=== PATIENT | female | born 1965 | race Caucasian/White ===

== ENCOUNTER → 2017-04-04 | Outpatient (CLI) | payer MEDICARE, MEDICAID ==
[~2017-04-04] MED LIST: HYDR25CA PO; HYDR50CA PO; LAMO2TB. PO; MULT-208 PO; PRAZ1CAP2 PO; ZIPR20CA2 PO
== END | disposition home or self-care (01) ==
LOC: CFH 13:42
PROVIDERS: ATTEND Nurse Practitioner
DX: N60.01 Solitary cyst of right breast (principal); N60.02 Solitary cyst of left breast
CPT/HCPCS: G0204

== ENCOUNTER 2017-09-07 13:32 | Emergency (ER) | payer MEDICARE, MEDICAID ==
[~2017-09-07] VITALS: Ht 167.6 cm; Wt 91.4 kg
[2017-09-07] MEDS ORDERED: LIDOCAINE 1%, 20ML INFIL ONE (14:00)
[2017-09-07] MEDS ORDERED: SODIUM CHLORIDE FLUSH 10ML SYR IVF ONE (14:00)
[2017-09-07] MEDS ORDERED: SODIUM CHLORIDE 0.9% 1,000ML IVBOLUS ONE (14:00)
[2017-09-07] MEDS ORDERED: LIDOCAINE 1%, 20ML ONE (14:54)
[2017-09-07 15:41] LABS: BLOOD UREA NITROGEN 4 mg/dL (7-18)
[2017-09-07 15:44] LABS: HEMATOCRIT 45.1 % (34.6-47.8); HEMOGLOBIN 15.4 g/dL (11.7-16.4)
[2017-09-07 16:26] VITALS: BP 146/77
== END 2017-09-07 16:28 | disposition home or self-care (01) ==
LOC: ED 16:10
DX: S01.122A Laceration with foreign body of left eyelid and periocular area, initial encounter (principal); F10.129 Alcohol abuse with intoxication, unspecified; F31.9 Bipolar disorder, unspecified; W01.190A Fall on same level from slipping, tripping and stumbling with subsequent striking against furniture, initial encounter; Y93.89 Activity, other specified; Y92.098 Other place in other non-institutional residence as the place of occurrence of the external cause; Y99.8 Other external cause status
CPT/HCPCS: 12052; 36415; 70450; 71010; 80048; 82040; 85025; 93005; 99284; 99285

== ENCOUNTER 2017-11-14 14:51 | Emergency (ER) | payer MEDICARE, MEDICAID ==
[~2017-11-14] VITALS: Ht 167.6 cm; Wt 86.5 kg
[~2017-11-14 14:51] MED LIST changes: +BUPR-173 PO
[2017-11-14 14:55] VITALS: BP 133/78
[2017-11-14] MEDS ORDERED: L.E.T SOLUTION TP ONE (15:30)
[2017-11-14] MEDS ORDERED: LIDOCAINE-MPF 1%, 5ML INFIL ONE (15:30)
[2017-11-14] MEDS ORDERED: LIDOCAINE 1%, 20ML ONE (15:38)
== END 2017-11-14 16:35 | disposition home or self-care (01) ==
LOC: ED 16:29
DX: S01.81XA Laceration without foreign body of other part of head, initial encounter (principal); F43.10 Post-traumatic stress disorder, unspecified; W01.0XXA Fall on same level from slipping, tripping and stumbling without subsequent striking against object, initial encounter; Y93.89 Activity, other specified; Y92.410 Unspecified street and highway as the place of occurrence of the external cause; Y99.9 Unspecified external cause status
CPT/HCPCS: 12011; 82962; 99283

== ENCOUNTER → 2018-05-07 | Outpatient (CLI) | payer MEDICARE, MEDICAID ==
[~2018-05-07] MED LIST changes: +BUPR150T6 PO; +CHOL10003 PO; +CYAN10002 IM; +HYDR25CA94 PO; +LAMO25TB7 PO; +PRAZ2CAP2 PO; +ZIPR60CA2 PO
== END | disposition home or self-care (01) ==
LOC: CFH 14:57
PROVIDERS: ATTEND Nurse Practitioner
DX: Z12.31 Encounter for screening mammogram for malignant neoplasm of breast (principal)
CPT/HCPCS: 77067

== ENCOUNTER 2018-10-22 12:12 | Emergency (ER) | payer MEDICARE, MEDICAID ==
[~2018-10-22] VITALS: Ht 165.1 cm; Wt 75.0 kg
[2018-10-22 12:22] VITALS: BP 146/99
[2018-10-22] MEDS ORDERED: LORazepam 1MG TABLET ONE (13:25)
--- NOTE | 2018-10-22 13:29 | NUR ---
Patient/Caregiver given discharge instructions and they have confirmed that they understand the instructions. Patient ambulatory with steady gait. Addendum: 10/22/18 at 1329 by ASIF PATIENT TO HAVE FAMILY/FRIEND DRIVE PATIENT HOME FOR SAFE DC.
[2018-10-22] MEDS ORDERED: LORazepam 1MG TABLET PO ONE (13:30)
== END 2018-10-22 13:30 | disposition home or self-care (01) ==
LOC: ED 13:20
DX: F41.1 Generalized anxiety disorder (principal); F32.9 Major depressive disorder, single episode, unspecified; F43.10 Post-traumatic stress disorder, unspecified; E66.9 Obesity, unspecified; Z68.27 Body mass index [BMI] 27.0-27.9, adult
CPT/HCPCS: 99284

== ENCOUNTER 2019-11-05 11:12 | Emergency (ER) | payer MEDICAID, MEDICARE ==
[~2019-11-05] VITALS: Ht 167.6 cm; Wt 80.5 kg
[2019-11-05 11:26] VITALS: BP 102/60
--- NOTE | 2019-11-05 11:31 | NUR ---
BREAK RN: PT UPRIGHT ON GURNEY AWAKE & CALM, RESPONDS APPROP TO STAFF, NAD AT REST BUR C/O SHOULDER PAIN WITH MOVEMENT, COMFORT MEASURES PROVIDED, CALL LIGHT WITHIN REACH, PT TO XR.
[2019-11-05 12:21] LABS: BASOPHILS # (AUTO) 0.04 x10^3/uL (0-0.1); BASOPHILS % (AUTO) 0 % (0-1); EOSINOPHILS # (AUTO) 0.23 x10^3/uL (0-0.4); EOSINOPHILS % (AUTO) 2 % (1-7); LYMPHOCYTES # (AUTO) 2.59 x10^3/uL (1-3.4); LYMPHOCYTES % (AUTO) 21 % (22-44); MD NO; MEAN CORPUSCULAR HEMOGLOBIN 32.5 pg (27.0-34.8); MEAN CORPUSCULAR HGB CONC 33.3 g/dL (32.4-35.8); MEAN CORPUSCULAR VOLUME 97.5 fL (80-100); MEAN PLATELET VOLUME 6.6 fL (7.4-10.4); MONOCYTES # (AUTO) 0.76 x10^3/uL (0.2-0.8); MONOCYTES % (AUTO) 6 % (2-9); NEUTROPHILS # (AUTO) 8.83 x10^3/uL (1.8-6.8); NEUTROPHILS % (AUTO) 71 % (42-75); PLATELET COUNT 317 x10^3/uL (130-400); RED BLOOD COUNT 4.53 x10^6/uL (3.82-5.3); RED CELL DISTRIBUTION WIDTH 13.7 % (9.6-15.2)
[2019-11-05 12:32] LABS: ALANINE AMINOTRANSFERASE 18 U/L (12-78); ALBUMIN 3.8 g/dL (3.4-5.0); ANION GAP 7 mmol/L (5-15); CALCIUM 8.8 mg/dL (8.5-10.1); CHLORIDE 107 mmol/L (98-107); CREATININE 0.91 mg/dL (0.55-1.02)
[2019-11-05 12:37] LABS: ALKALINE PHOSPHATASE 67 U/L (45-117); BILIRUBIN,TOTAL 0.2 mg/dL (0.2-1.0); TOTAL PROTEIN 7.6 g/dL (6.4-8.2); TROPONIN I < 0.015 ng/mL (0.000-0.045)
[2019-11-05] MEDS ORDERED: IBUPROFEN 600 MG TABLET ONE (13:56)
[2019-11-05] MEDS ORDERED: IBUPROFEN 600 MG TABLET PO ONE (14:00)
--- NOTE | 2019-11-05 14:26 | NUR ---
Patient given discharge instructions and they have confirmed that they understand the instructions. Patient ambulatory with steady gait.
== END 2019-11-05 14:27 | disposition home or self-care (01) ==
LOC: ED 13:11
DX: R07.89 Other chest pain (principal); M25.512 Pain in left shoulder; Z87.891 Personal history of nicotine dependence
CPT/HCPCS: 36415; 71045; 80053; 83690; 84484; 85025; 85379; 93005; 99284

== ENCOUNTER 2019-12-17 18:48 | Emergency (ER) | payer MEDICAID, MEDICARE ==
[~2019-12-17] VITALS: Ht 167.6 cm; Wt 79.0 kg
[2019-12-17 19:04] VITALS: BP 117/65
--- NOTE | 2019-12-17 19:10 | NUR ---
felicity soni, pt states she fell down earlier and asked her neighbor to call nae. states she does not know how long she was nel the ground. pt states 3-4 falls in the past 3 weeks. "i dont know" is her response so "why are you falling down so much?" pain in bilat arms and bilat legs. denies head trauma. attached to all moniotors
[2019-12-17 19:47] LABS: MICROSCOPIC INDICATED
[2019-12-17 19:48] LABS: CULTURE INDICATED? YES
[2019-12-17 20:22] LABS: MEAN CORPUSCULAR HEMOGLOBIN 31.3 pg (27.0-34.8); MEAN CORPUSCULAR HGB CONC 32.5 g/dL (32.4-35.8); MEAN CORPUSCULAR VOLUME 96.3 fL (80-100); MEAN PLATELET VOLUME 6.3 fL (7.4-10.4); PLATELET COUNT 294 x10^3/uL (130-400); RED BLOOD COUNT 3.98 x10^6/uL (3.82-5.3); RED CELL DISTRIBUTION WIDTH 13.2 % (9.6-15.2)
[2019-12-17 20:33] LABS: ALANINE AMINOTRANSFERASE 23 U/L (12-78); ALBUMIN 3.1 g/dL (3.4-5.0); ANION GAP 9 mmol/L (5-15); CALCIUM 9.1 mg/dL (8.5-10.1); CHLORIDE 105 mmol/L (98-107); CREATININE 1.08 mg/dL (0.55-1.02)
--- NOTE | 2019-12-17 20:33 | NUR ---
PT RESTING ON GURNEY WITH NO ACUTE DISTRESS. PT STATES THAT IF ALL OF HER LABS COME BACK NEG, SHE WANTS TO GO HOME
[2019-12-17 20:36] LABS: BASOPHILS # (AUTO) 0.03 x10^3/uL (0-0.1); BASOPHILS % (AUTO) 0 % (0-1); EOSINOPHILS # (AUTO) 0.09 x10^3/uL (0-0.4); EOSINOPHILS % (AUTO) 1 % (1-7); LYMPHOCYTES # (AUTO) 1.67 x10^3/uL (1-3.4); LYMPHOCYTES % (AUTO) 14 % (22-44); MD SCAN; MONOCYTES # (AUTO) 1.21 x10^3/uL (0.2-0.8); MONOCYTES % (AUTO) 10 % (2-9); NEUTROPHILS # (AUTO) 9.18 x10^3/uL (1.8-6.8); NEUTROPHILS % (AUTO) 75 % (42-75)
[2019-12-17 20:37] LABS: ALKALINE PHOSPHATASE 92 U/L (45-117); BILIRUBIN,TOTAL 0.3 mg/dL (0.2-1.0); TOTAL PROTEIN 7.4 g/dL (6.4-8.2); TROPONIN I < 0.015 ng/mL (0.000-0.045)
[2019-12-17] MEDS ORDERED: LIDOCAINE-MPF 1%, 2ML ONE (20:46)
[2019-12-17] MEDS ORDERED: CEFTRIAXONE 1,000 MG ONE (20:47)
[2019-12-17] MEDS ORDERED: CEFTRIAXONE 1,000 MG IM ONE (21:00)
--- NOTE | 2019-12-17 21:13 | NUR ---
PT MEDICATED FOR UTI AND FRIEND DAGOBERTO CALLED. HE SAID HE IS COMING FROM [facility] AND WILL BE HERE AROUND 2134 TO PICK HER UP. PT DRESSED AND PLACED IN WHEEL CHAIR IN LOBBY FOR FRIEND TO RECIEVE HER. PT PROVIDED WALKER TO TAKE HOME WITH HER
== END 2019-12-17 21:25 | disposition home or self-care (01) ==
LOC: ED 19:42
DX: N30.00 Acute cystitis without hematuria (principal); R53.1 Weakness
CPT/HCPCS: 36415; 70450; 80053; 81001; 83605; 84484; 85025; 87077; 87086; 87186; 93005; 96372; 99285; J0696

== ENCOUNTER 2020-01-19 10:55 | Inpatient (IN) | payer MEDICARE, MEDICAID ==
[~2020-01-19] VITALS: Ht 167.6 cm; Wt 75.8 kg
--- NOTE | 2020-01-19 11:13 | NUR ---
PT BIBA FOR GLF THAT OCCURRED LAST NIGHT, PT WAS UNABLE TO GET UP AND WAS DOWN ALL NIGHT. NEIGHBOR HEARD PT CALLING OUT FOR HELP AND ASSISTED PT OFF GROUND AND CALLED EMS. PT HAS HAD INCREASED GLF'S X 1 YEAR SECONDARY TO WEAKNESS. REPORT RECEIVED [facility]. PER EMS, PT HAD HOLTER MONITOR PLACED BUT TOOK IT OFF A FEW DAYS AGO. PT DENIES SYNCOPE. ABRASION NOTED TO LEFT ELBOW, PT DENIES OTHER INJURY. PT A&OX4, RESPS EVEN AND UNLABORED, SINUS TACH ON MONITOR WITH NO ECTOPY. NEURO INTACT. ALL MONITORS APPLIED. EKG TAKEN ON ARRIVAL. CALL LIGHT IN REACH. AWAITING LABS AND DISPO.
[2020-01-19 11:22] LABS: BASOPHILS # (AUTO) 0.03 x10^3/uL (0-0.1); BASOPHILS % (AUTO) 0 % (0-1); EOSINOPHILS # (AUTO) 0.06 x10^3/uL (0-0.4); EOSINOPHILS % (AUTO) 1 % (1-7); LYMPHOCYTES # (AUTO) 2.21 x10^3/uL (1-3.4); LYMPHOCYTES % (AUTO) 19 % (22-44); MD NO; MEAN CORPUSCULAR HEMOGLOBIN 31.6 pg (27.0-34.8); MEAN CORPUSCULAR HGB CONC 33.2 g/dL (32.4-35.8); MEAN CORPUSCULAR VOLUME 95.1 fL (80-100); MEAN PLATELET VOLUME 6.1 fL (7.4-10.4); MONOCYTES # (AUTO) 0.52 x10^3/uL (0.2-0.8); MONOCYTES % (AUTO) 4 % (2-9); NEUTROPHILS # (AUTO) 8.92 x10^3/uL (1.8-6.8); NEUTROPHILS % (AUTO) 76 % (42-75); PLATELET COUNT 361 x10^3/uL (130-400); RED BLOOD COUNT 4.66 x10^6/uL (3.82-5.3); RED CELL DISTRIBUTION WIDTH 14.4 % (9.6-15.2)
[2020-01-19 11:32] LABS: ALBUMIN 3.8 g/dL (3.4-5.0); ANION GAP 6 mmol/L (5-15); CALCIUM 10.2 mg/dL (8.5-10.1); CHLORIDE 105 mmol/L (98-107); CREATININE 0.98 mg/dL (0.55-1.02)
[2020-01-19] MEDS ORDERED: ONDANSETRON ODT 4 MG PO ONE (12:30)
--- NOTE | 2020-01-19 13:00 | NUR ---
late entry d/t patient care: pt vomited x 1, edmd notified. however, after emesis, pt denies nausea, declines zofran.
[2020-01-19 13:12] LABS: MICROSCOPIC NOT IND
[2020-01-19 13:15] LABS: CULTURE INDICATED? NO
--- NOTE | 2020-01-19 13:45 | NUR ---
pt trialed to ambulate with RN and MD. pt was unable to walk more than 3 steps without faltering and needing to grab onto wall. pt is oriented to person, place, year and situation, disoriented to year. KIMBER Valentine notified. neuro exam repeated, pt remains neurologically intact, generalized weak but no focal weakness. pt is confabulating, stating she needs to leave to sisal picker her children, stating she needs to leave to tend to cats, then stating she needs to leave to go to an appt. EDMD Valentine notified. pt assisted back to bed, pt a&ox3, resps even and unlabored. pt denies acute pain, c/o mild chronic joint pain at this time. all monitors in place. 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 pt to be admitted. pt agreeable.
--- NOTE | 2020-01-19 13:50 | NUR ---
breathalyzer performed per MD instruction, pt blew 0. EDMD notified.
[2020-01-19] MEDS ORDERED: THIAMINE 200 MG in SODIUM CHLORIDE 0.9% 50 ML IV ONE (14:00)
--- NOTE | 2020-01-19 14:12 | NUR ---
PT UNABLE TO RECALL HOME MEDS/DOSES ; THIS RN UNABLE TO COMPLETE MED REC AT THIS TIME.
--- NOTE | 2020-01-19 14:20 | NUR ---
TASK RN: IN ROOM FOR EVAL.
[2020-01-19 14:23] LABS: ALBUMIN 3.8 g/dL (3.4-5.0); BILIRUBIN, DIRECT 0.2 mg/dL (0.1-0.2)
[2020-01-19 14:25] LABS: BILIRUBIN,INDIRECT 0.4 mg/dL (0.0-2.0); BILIRUBIN,TOTAL 0.6 mg/dL (0.2-1.0); TOTAL PROTEIN 8.1 g/dL (6.4-8.2)
[2020-01-19] MEDS ORDERED: ONDANSETRON ODT 4 MG PO PRN (14:30)
[2020-01-19] MEDS ORDERED: LORazepam 1MG TABLET PO PRN (14:30)
[2020-01-19] MEDS ORDERED: ONDANSETRON 2MG/ML, 2ML IVPush PRN (14:30)
[2020-01-19] MEDS ORDERED: LAMO150T4 PO (14:32)
[2020-01-19] MEDS ORDERED: HYDR50TA99 PO (14:32)
[2020-01-19] MEDS ORDERED: DOXE75CA PO (14:32)
[2020-01-19] MEDS ORDERED: ZIPR80CA3 PO (14:32)
[2020-01-19] MEDS ORDERED: BENZ1TAB61 PO (14:32)
[2020-01-19] MEDS: SODIUM CHLORIDE 0.9% 1,000 ML IV SCH (14:38)
--- NOTE | 2020-01-19 14:38 | NUR ---
TASK RN: PIV STARTED. MEDICATED PER EMAR.
--- NOTE | 2020-01-19 14:42 | NUR ---
MED REC UPDATED BY CALLING PT'S PHARMACY. MD ROSALES NOTIFIED THAT MED REC NEEDS REVIEW
--- NOTE | 2020-01-19 14:45 | NUR ---
TASK RN: JAZ SHAFFER FROM PHARMACY.
--- NOTE | 2020-01-19 14:56 | NUR ---
REPORT GIVEN TO JODY COLINDRES WHO IS ASSUMING CARE AT THIS TIME.
--- NOTE | 2020-01-19 15:08 | NUR ---
REPORT RECEIVED FROM MARY VERA. PT IS RESTING ON nooked W/ CALL LIGHT IN REACH. AWAITING ADMIT.
[2020-01-19 15:14] LABS: AMPHETAMINE SCREEN, URINE Negative (Negative); BARBITURATE SCREEN, URINE Negative (Negative); BENZODIAZEPINE SCREEN, URINE Negative (Negative); CANNABINOID SCREEN, URINE Negative (Negative); COCAINE SCREEN, URINE Negative (Negative); METHADONE SCREEN, URINE Negative (Negative); OPIATE SCREEN, URINE Negative (Negative)
[2020-01-19] MEDS: POTASSIUM CHLORIDE 20 MEQ, MAGNESIUM SULFATE 1 GM, FOLIC ACID 1 MG, THIAMINE 200 MG, MV... IV SCH (15:25)
--- NOTE | 2020-01-19 15:35 | NUR ---
REPORT GIVEN TO ALVINA VERA. PT IS READY FOR TRANSFER AT THIS TIME.
[2020-01-19 15:56] VITALS: BP 130/84
[2020-01-19 19:08] VITALS: BP 119/77
[2020-01-19] MEDS ORDERED: DOXEPIN 25 MG CAPSULE PO SCH (21:00)
[2020-01-19] MEDS: HYDROXYZINE PAMOATE 50MG CAP PO PRN (21:29)
[2020-01-19] MEDS: BENZTROPINE 1 MG TABLET PO SCH (21:29)
[2020-01-19] MEDS: ZIPRASIDONE 40MG CAPSULE PO SCH (21:30)
[2020-01-19] MEDS: LAMOTRIGINE 100 MG TABLET PO SCH (21:30)
[2020-01-20 01:57] VITALS: BP 104/70
[2020-01-20 06:04] LABS: CHLORIDE 110 mmol/L (98-107)
[2020-01-20 06:10] LABS: ALANINE AMINOTRANSFERASE 21 U/L (12-78); ALBUMIN 3.3 g/dL (3.4-5.0); ALKALINE PHOSPHATASE 69 U/L (45-117); ANION GAP 6 mmol/L (5-15); BASOPHILS # (AUTO) 0.05 x10^3/uL (0-0.1); BASOPHILS % (AUTO) 1 % (0-1); BILIRUBIN,TOTAL 0.5 mg/dL (0.2-1.0); CALCIUM 8.7 mg/dL (8.5-10.1); CREATININE 0.87 mg/dL (0.55-1.02); EOSINOPHILS # (AUTO) 0.22 x10^3/uL (0-0.4); EOSINOPHILS % (AUTO) 2 % (1-7); LYMPHOCYTES # (AUTO) 3.33 x10^3/uL (1-3.4); LYMPHOCYTES % (AUTO) 33 % (22-44); MD NO; MEAN CORPUSCULAR HEMOGLOBIN 31.7 pg (27.0-34.8); MEAN CORPUSCULAR HGB CONC 32.6 g/dL (32.4-35.8); MEAN CORPUSCULAR VOLUME 97.2 fL (80-100); MEAN PLATELET VOLUME 6.3 fL (7.4-10.4); MONOCYTES % (AUTO) 6 % (2-9); NEUTROPHILS # (AUTO) 5.83 x10^3/uL (1.8-6.8); NEUTROPHILS % (AUTO) 58 % (42-75); PLATELET COUNT 336 x10^3/uL (130-400); RED CELL DISTRIBUTION WIDTH 14.4 % (9.6-15.2); TOTAL PROTEIN 6.8 g/dL (6.4-8.2)
[2020-01-20 06:12] VITALS: BP 97/70
[2020-01-20] MEDS ORDERED: ZIPRASIDONE 20MG CAPSULE ONE (07:14)
[2020-01-20] MEDS: HYDROXYZINE PAMOATE 50MG CAP PO PRN ×2 (07:16→15:25)
[2020-01-20] MEDS: ZIPRASIDONE 40MG CAPSULE PO SCH (07:16)
[2020-01-20] MEDS: BENZTROPINE 1 MG TABLET PO SCH (07:17)
[2020-01-20] MEDS: LAMOTRIGINE 100 MG TABLET PO SCH (07:17)
[2020-01-20] MEDS: SODIUM CHLORIDE 0.9% 1,000 ML IV SCH (07:18)
[2020-01-20] MEDS ORDERED: HEPARIN 5,000 UNITS/ML, 1ML SQ SCH (08:30)
[2020-01-20] MEDS ORDERED: CHOLECALCIFEROL 1,000 UNIT TABLET PO SCH (09:00)
[2020-01-20] MEDS ORDERED: GADOTERATE 7.5 MMOL/15 ML SYR ONE (11:06)
[2020-01-20 12:20] VITALS: BP 116/78
[2020-01-20] MEDS ORDERED: THIAMINE 100 MG in SODIUM CHLORIDE 0.9% 50 ML IV SCH (14:00)
[2020-01-20] MEDS: POTASSIUM CHLORIDE 20 MEQ, MAGNESIUM SULFATE 1 GM, FOLIC ACID 1 MG, THIAMINE 200 MG, MV... IV SCH (15:25)
== END 2020-01-20 17:50 | disposition left against medical advice (07) | DRG 552 ==
LOC: ED 11:43 → EDIP 13:51 → 4EST 15:45
PROVIDERS: ADMIT Internal Medicine; ATTEND Internal Medicine
PROC: 0T9B70Z Drainage of Bladder with Drainage Device, Via Natural or Artificial Opening (ICD-10-PCS; principal; 2020-01-19)
DX: M50.30 Other cervical disc degeneration, unspecified cervical region (principal); E51.2 Wernicke's encephalopathy; R29.6 Repeated falls; E86.0 Dehydration; Z53.29 Procedure and treatment not carried out because of patient's decision for other reasons; E83.52 Hypercalcemia; F31.9 Bipolar disorder, unspecified; F41.1 Generalized anxiety disorder; F43.10 Post-traumatic stress disorder, unspecified; Z82.49 Family history of ischemic heart disease and other diseases of the circulatory system; Z83.3 Family history of diabetes mellitus; Z87.891 Personal history of nicotine dependence; Z90.710 Acquired absence of both cervix and uterus; Z91.81 History of falling; Z96.611 Presence of right artificial shoulder joint
CPT/HCPCS: 36415; 70553; 71045; 72156; 80048; 80053; 80076; 80307; 81003; 82040; 82306; 82330; 82607; 83735; 84100; 84443; 85025; 93005; 96374; G0378; J1644; J3411; J3475; J3480; J7042; Q0162; A9575; J7030

== ENCOUNTER 2021-01-13 18:18 | Emergency (ER) | payer MEDICARE, MEDICAID ==
[~2021-01-13] VITALS: Ht 167.6 cm; Wt 78.8 kg
[~2021-01-13 18:18] MED LIST changes: +BENZ1TAB61 PO; +BUPR150T22 PO; -BUPR150T6 PO; +DOXE75CA PO; +HYDR50TA99 PO; +LAMO150T4 PO; +ZIPR80CA3 PO
[2021-01-13 18:21] VITALS: BP 108/75
--- NOTE | 2021-01-13 18:58 | NUR ---
PT TO ROOM 31 W/ C/O NEEDING REFILL FOR GEODON AND LAMICTAL. PT STATES UNABLE TO SLEEP. PT STATES SHE HAS NOT BEEN ON HER MEDICATIONS SINCE 12/31 SECONDAR TO INSUANCE CHANGE. PT RESTING ON INGA. CAROL.
== END 2021-01-13 19:59 | disposition home or self-care (01) ==
LOC: ED 19:57
DX: F41.1 Generalized anxiety disorder (principal); Z76.0 Encounter for issue of repeat prescription; G47.00 Insomnia, unspecified
CPT/HCPCS: 99283; Q0177

== ENCOUNTER → 2021-03-28 | Outpatient (CLI) | payer MEDICARE, MEDICAID | END | disposition home or self-care (01) | LOC: CFH 10:04 | PROVIDERS: ATTEND Nurse Practitioner Psychiatric/Mental Health | DX: Z12.31 Encounter for screening mammogram for malignant neoplasm of breast (principal); S82.402A Unspecified fracture of shaft of left fibula, initial encounter for closed fracture; X58.XXXA Exposure to other specified factors, initial encounter; Y93.89 Activity, other specified; Y92.89 Other specified places as the place of occurrence of the external cause; Y99.8 Other external cause status | CPT/HCPCS: 77067; 77080 ==

== ENCOUNTER → 2021-04-12 | Outpatient (CLI) | payer MEDICARE, MEDICAID | END | disposition home or self-care (01) | LOC: CFH 13:41 | PROVIDERS: ATTEND Nurse Practitioner Psychiatric/Mental Health | DX: R92.0 Mammographic microcalcification found on diagnostic imaging of breast (principal) | CPT/HCPCS: 77061; 77065; G0279 ==

== ENCOUNTER 2021-05-24 07:46 | Outpatient (CLI) | payer MEDICARE, MEDICAID ==
[2021-05-24] MEDS ORDERED: SODIUM BICARBONATE 4.2%, 5ML ONE (10:14)
[2021-05-24] MEDS ORDERED: LIDOCAINE 1%, 20ML ONE (10:14)
[2021-05-24] MEDS ORDERED: LIDOCAINE 1%-EPI 1:100K, 20ML ONE (10:14)
== END 2021-05-24 23:59 | disposition home or self-care (01) ==
LOC: CFH 07:46
PROVIDERS: ATTEND Nurse Practitioner Psychiatric/Mental Health
DX: R92.0 Mammographic microcalcification found on diagnostic imaging of breast (principal); N60.31 Fibrosclerosis of right breast; N60.21 Fibroadenosis of right breast; N62 Hypertrophy of breast
CPT/HCPCS: 19081; 77063; 88305; 77065